=== PATIENT | female | born 1955 | race Caucasian/White ===

== ENCOUNTER → 2017-05-25 13:34 | Outpatient (CLI) | payer OTHER ==
[~2017-05-25 13:34] MED LIST: ASPIRIN EC81 M1 PO; CALTRATE 600 M600 M1 PO; CELEXA20 MG PO; FISH OIL 1,0001 CA1 PO; IBUPROFEN600 MG PO; MULTI-DAY VITAM1 TAB PO; OSTEO BI-FLEX1 EAC1 PO; PERCOCET 10/3251 TA1 PO; PRAVACHOL20 MG; PRAVACHOL20 MG PO
== END | disposition home or self-care (01) ==
LOC: D.MAMMO 09:15
DX: Z12.31 Encounter for screening mammogram for malignant neoplasm of breast (principal)

== ENCOUNTER 2018-12-26 10:00 | Outpatient (CLI) | payer BC | END 2018-12-26 11:00 | disposition home or self-care (01) | LOC: D.MAMMO 10:00 | PROVIDERS: ATTEND Family Medicine | DX: Z12.31 Encounter for screening mammogram for malignant neoplasm of breast (principal) ==